=== PATIENT | male | born 1995 | race Caucasian/White ===

== ENCOUNTER 2019-10-18 10:11 | Emergency (ER) | payer SELFPAY ==
--- NOTE | 2019-10-18 11:10 | ER Document Report ---
HPI - HPI Time Seen by Provider: 10/18/19 10:39 Pain Level: 3 Context: Patient is a 24-year-old male who presents to the emergency department with a chief complaint of left arm pain from his distal elbow all the way down to his fingers. 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 Patient states that he does a lot of repetitive flexing motions with his fingers. Patient states that he is not able to extend his second, third, and fourth digits without helping his fingers. Denies any past medical history. Patient denies any injury. - ROS Systems Reviewed and Negative: Yes All other systems reviewed and negative - MUSCULOSKELETAL Musculoskeletal: REPORTS: Extremity pain - left elbow. DENIES: Swelling - DERM Skin Color: Normal Skin Problems: None Past Medical History - Social History Smoking Status: Current Some Day Smoker Chew tobacco use (# tins/day): No Frequency of alcohol use: None Drug Abuse: None Family History: Reviewed & Not Pertinent Patient has homicidal ideation: No Vertical Provider Document - CONSTITUTIONAL Agree With Documented VS: Yes Exam Limitations: No Limitations General Appearance: No Apparent Distress - INFECTION CONTROL TRAVEL OUTSIDE OF THE [place] IN LAST 30 DAYS: No - HEENT HEENT: Atraumatic, Normocephalic - NECK Neck: Normal Inspection - RESPIRATORY Respiratory: No Respiratory Distress - CARDIOVASCULAR Cardiovascular: Regular Rate, Regular Rhythm Pulses: Normal: Radial - MUSCULOSKELETAL/EXTREMETIES Musculoskeletal/Extremeties: Tender - Left posterior arm, No Edema. negative: FROM - Decreased extension movements, Eccymosis - NEURO Level of Consciousness: Awake, Alert, Appropriate - DERM Integumentary: Warm, Dry, No Rash Course - Re-evaluation Re-evalutation: 10/18/19 11:53 Hand and elbow x-ray are unremarkable. No arthritis noted. Patient was placed in a splint. He will follow-up with orthopedics if he continues to have pain. We will start him on a course of prednisone. He is in agreement with this plan. Educated patient to stretch his hand. He is in agreement with this plan. Follow-up precautions were given. Verbal discharge instructions were given to the patient. They verbalized understanding. They are stable for discharge. - Vital Signs Vital signs: Temp Pulse Resp BP Pulse Ox 98.5 F 97 16 122/75 98 10/18/19 10:39 10/18/19 10:17 10/18/19 10:17 10/18/19 10:17 10/18/19 10:17 Discharge - Discharge Clinical Impression: Left arm pain, Left hand pain Trigger finger Qualifiers: Trigger finger location: unspecified finger Laterality: left Qualified Code(s): M65.30 - Trigger finger, unspecified finger Condition: Stable Disposition: HOME, SELF-CARE Additional Instructions: You were seen today in the emergency department for left arm pain and finger pain. You have trigger finger. Please make sure you rest and wear the splint. Make sure you do not do repetitive motions with your fingers, as this will make trigger finger worse. Follow-up with orthopedics if you continue to have problems. You are also being placed on steroids to help with inflammation. Take ibuprofen 600 mg every 6 hours as needed for your pain. Prescriptions: Prednisone [Deltasone 20 mg Tablet] 3 tab PO DAILY 5 Days #15 tablet Forms: Return to Work Referrals: [facility] [Provider Group] - Follow up as needed [facility] [Provider Group] - Follow up as needed ROE CABA JR, DO [ACTIVE PROVISIONAL STAFF] - Follow up in 1 week
--- NOTE | 2019-10-18 11:23 | RADIOLOGY REPORT (SQ) ---
EXAM DESCRIPTION: HAND LEFT 3 VIEWS IMAGES COMPLETED DATE/TIME: 10/18/2019 11:06 am REASON FOR STUDY: hand pain COMPARISON: None. EXAM PARAMETERS: NUMBER OF VIEWS: Three views. TECHNIQUE: AP, lateral and oblique radiographic images acquired of the left hand. LIMITATIONS: None. FINDINGS: MINERALIZATION: Normal. BONES: No acute fracture or dislocation. No worrisome bone lesions. No significant osteophytes. JOINTS: No erosions. No bassam-articular osteopenia. No chondrocalcinosis. SOFT TISSUES: No swelling. No calcifications. OTHER: No other significant finding. IMPRESSION: NEGATIVE STUDY OF THE LEFT HAND. NO EXPLANATION FOR PAIN. TECHNICAL DOCUMENTATION: JOB ID: [id number] 2010 [employer]- All Rights Reserved Reading location - IP/workstation name: [email or web address]
--- NOTE | 2019-10-18 11:23 | RADIOLOGY REPORT (SQ) ---
EXAM DESCRIPTION: ELBOW LEFT OVER 2 VIEWS IMAGES COMPLETED DATE/TIME: 10/18/2019 11:06 am REASON FOR STUDY: elbow pain COMPARISON: None. NUMBER OF VIEWS: Four view. TECHNIQUE: AP, lateral, and both oblique radiographic images acquired of the left elbow. LIMITATIONS: None. FINDINGS: MINERALIZATION: Normal. BONES: No acute fracture or dislocation. No worrisome bone lesions. No significant osteophytes. JOINT: No effusions. SOFT TISSUES: No soft tissue swelling. No foreign body. OTHER: No other significant finding. IMPRESSION: NEGATIVE STUDY OF THE LEFT ELBOW. NO EXPLANATION FOR PAIN. TECHNICAL DOCUMENTATION: JOB ID: [id number] 2010 [email or web address]- All Rights Reserved. Reading location - IP/workstation name: [email or web address]
[2019-10-18 12:23] VITALS: BP 104/60
== END 2019-10-18 12:21 | disposition home or self-care (01) ==
LOC: ER 10:11
DX: M65.30 Trigger finger, unspecified finger (principal); M79.642 Pain in left hand; M25.522 Pain in left elbow; F17.200 Nicotine dependence, unspecified, uncomplicated
CPT/HCPCS: 99283

== ENCOUNTER 2019-10-26 09:32 | Emergency (ER) | payer SELFPAY ==
--- NOTE | 2019-10-26 13:29 | ER Document Report ---
HPI - HPI Time Seen by Provider: 10/26/19 12:34 Pain Level: 1 Context: Patient is a 24-year-old male who presents the emergency department with a chief complaint of left wrist/hand pain. Patient was seen here in the emergency department with continued symptoms. Patient states that he is able to extend his fingers a little more, but hit his wrist has a hard time extending. Patient has not followed up with orthopedics. - ROS Systems Reviewed and Negative: Yes All other systems reviewed and negative - MUSCULOSKELETAL Musculoskeletal: REPORTS: Extremity pain - Lt arm - DERM Skin Color: Normal Skin Problems: None Past Medical History - General Information source: Patient - Social History Smoking Status: Smoker,Current Status Unk Frequency of alcohol use: Social Drug Abuse: None Family History: Reviewed & Not Pertinent Vertical Provider Document - CONSTITUTIONAL Agree With Documented VS: Yes Exam Limitations: No Limitations General Appearance: No Apparent Distress - INFECTION CONTROL TRAVEL OUTSIDE OF THE [place] IN LAST 30 DAYS: No - HEENT HEENT: Atraumatic, Normocephalic, PERRLA - NECK Neck: Normal Inspection - RESPIRATORY Respiratory: Breath Sounds Normal, No Respiratory Distress - CARDIOVASCULAR Cardiovascular: Regular Rate, Regular Rhythm Pulses: Normal: Radial - MUSCULOSKELETAL/EXTREMETIES Musculoskeletal/Extremeties: negative: FROM - Wrist to elbow joint, right wrist - NEURO Level of Consciousness: Awake, Alert, Appropriate Motor/Sensory: No Sensory Deficit - DERM Integumentary: Warm, Dry, No Rash Course - Re-evaluation Re-evalutation: 10/26/19 13:40 Dr. Wills evaluated the patient. He states the patient has ulnar drop. I noticed that the patient has had some improvement in his range of motion. Dr. wills is recommending the patient be placed on another round of steroids, but will give Decadron this time. We will also check Accu-Chek. 10/27/19 07:58 Blood sugar is 88. Dr. Wills is recommending a cock-up splint for the patient to help with this ulnar drop. Capillary refill less than 3 seconds. Radial pulse 2+. No vascular compromise noted. Follow-up precautions were given. Verbal discharge instructions were given to the patient. They verbalized understanding. They are stable for discharge. - Vital Signs Vital signs: Temp Pulse Resp BP Pulse Ox 98.7 F 82 16 122/65 98 10/26/19 10:01 10/26/19 10:01 10/26/19 10:01 10/26/19 10:01 10/26/19 10:01 Procedures - Immobilization Left Wrist Pre-Proc Neuro Vasc Exam: Normal Immobilizer type: Cock-up Performed by: PCT Post-Proc Neuro Vasc Exam: Normal, Unchanged from pre-exam Alignment checked and good: Yes Discharge - Discharge Clinical Impression: Left wrist pain Finger pain Qualifiers: Laterality: left Qualified Code(s): M79.645 - Pain in left finger(s) Condition: Stable Disposition: HOME, SELF-CARE Additional Instructions: You were seen today in the emergency department for contorting left arm pain. Wear the splint at night. You must follow-up with orthopedics in regards to this visit. Take the steroids as prescribed. Prescriptions: Dexamethasone [Decadron 4 Mg Tablet] 4 mg PO DAILY 5 Days #5 tablet Forms: Return to Work Referrals: AURORA HERNANDES MD [ACTIVE PROVISIONAL STAFF] - Follow up in 3-5 days ROE CABA JR, DO [ACTIVE PROVISIONAL STAFF] - Follow up in 3-5 days RANCHO FORMAN DO [ACTIVE STAFF] - Follow up in 3-5 days
[2019-10-26 14:09] VITALS: BP 113/82
== END 2019-10-26 14:09 | disposition home or self-care (01) ==
LOC: ER 09:32
DX: M79.642 Pain in left hand (principal); M79.645 Pain in left finger(s); F17.200 Nicotine dependence, unspecified, uncomplicated
CPT/HCPCS: 82962; 99283

== ENCOUNTER 2019-11-06 11:40 | Emergency (ER) | payer SELFPAY ==
[2019-11-06] MEDS ORDERED: IBUPROFEN 800 MG TABLET PO ONE (12:26)
--- NOTE | 2019-11-06 12:31 | ER Document Report ---
ED Medical Screen (RME) - General Chief Complaint: Arm Pain Stated Complaint: ARM PAIN Time Seen by Provider: 11/06/19 12:19 TRAVEL OUTSIDE OF THE [place] IN LAST 30 DAYS: No - HPI Notes: 11/06/19 12:27 24-year-old male presents emergency room for complaints of pain to his left axilla, states he is noticed a "bump" that started proximally 3 days ago. States pain is 5 out of 10, reports pain with movement. Denies history of MRSA. Patient has been able to see his primary care provider for this issue. no otc meds tried. Patient denies any drainage. Patient is in a left wrist cock up for pre-existing left wrist pain. denies any chest pain, shortness of breath, fevers or chills. I have greeted and performed a rapid initial assessment of this patient. A comprehensive ED assessment and evaluation of the patient, analysis of test results and completion of the medical decision making process will be conducted by additional ED providers. PHYSICAL EXAMINATION: NECK: Normal range of motion CV: s1, s2 regular LUNGS: No respiratory distress Musculoskeletal: Normal range of motion NEUROLOGICAL: Normal speech, normal gait. SKIN: Warm, Dry, normal turgor, no rashes or lesions noted. Inferior aspect of left axilla with an abscess approximately 2 cm x 2 cm with erythema, induration, pain to touch. No surrounding lymphadenopathy 11/06/19 12:30 - Related Data Allergies/Adverse Reactions: No Known Allergies Allergy (Verified 11/06/19 12:18) Physical Exam - Vital signs Vitals: Temp Pulse Resp BP Pulse Ox 99.4 F 89 14 118/80 100 11/06/19 11:52 11/06/19 11:52 11/06/19 11:52 11/06/19 11:52 11/06/19 11:52 Course - Vital Signs Vital signs: Temp Pulse Resp BP Pulse Ox 99.4 F 89 14 118/80 100 11/06/19 11:52 11/06/19 11:52 11/06/19 11:52 11/06/19 11:52 11/06/19 11:52
[2019-11-06] MEDS ORDERED: LIDOCAINE 1%/EPINEPHRINE INJ 20 ML VIAL INJ ONE (14:28)
--- NOTE | 2019-11-06 15:06 | ER Document Report ---
ED General - General Chief Complaint: Abscess Stated Complaint: ARM PAIN Time Seen by Provider: 11/06/19 12:19 Notes: 24-year-old male with past medical history of abscesses presenting today with an abscess under his left armpit. States he developed a few days ago. States he did shave under his armpit a few days ago. Is warm, tender to palpation. He has not been able to drain the abscess. States he has had no fever, chills or additional symptoms at this time. TRAVEL OUTSIDE OF THE [place] IN LAST 30 DAYS: No - Related Data Allergies/Adverse Reactions: No Known Allergies Allergy (Verified 11/06/19 12:18) Past Medical History - Social History Smoking Status: Former Smoker Chew tobacco use (# tins/day): No Frequency of alcohol use: Social Family History: Reviewed & Not Pertinent Patient has homicidal ideation: No Review of Systems - Review of Systems Constitutional: No symptoms reported EENT: No symptoms reported Cardiovascular: No symptoms reported Respiratory: No symptoms reported Gastrointestinal: No symptoms reported Genitourinary: No symptoms reported Male Genitourinary: No symptoms reported Skin: See HPI Neurological/Psychological: No symptoms reported Physical Exam - Vital signs Vitals: Temp Pulse Resp BP Pulse Ox 99.4 F 89 14 118/80 100 11/06/19 11:52 11/06/19 11:52 11/06/19 11:52 11/06/19 11:52 11/06/19 11:52 Interpretation: No: Bradycardic, Tachycardic, Hypoxic, Tachypneic, Febrile - Notes Notes: Adult General: GENERAL: Alert, interacts well. No acute distress HEAD: Normocephalic, atraumatic EYES: Extraocular movements intact. ENT: Airway patent. Nares patent. NECK: Full range of motion. Supple. Trachea midline. LUNGS: No respiratory distress. Nontender chest wall. HEART: Regular rate and rhythm. ABDOMEN: Soft, nontender. GENITOURINARY: Deferred EXTREMITIES: Moves all 4 extremities spontaneously. BACK: Moves all extremities with full range of motion. NEUROLOGICAL: Alert and oriented x3. Normal speech. Strength 5/ 5 in all ext remities. PSYCH: Normal affect, normal mood. SKIN: Warm, dry, normal turgor. 2 cm fluctulent tender mass in left arm pit. no associated cellulitis. Course - Re-evaluation Re-evalutation: Abscess was incised and drained. Produced purulent discharge. Was then packed with iodoform gauze. Patient tolerated procedure. Prescribed antibiotics to take. I discussed wound care with the patient and the need to follow-up in 24 hours for wound check the emergency department or primary care or urgent care. I also discussed return precautions with the patient to include fever, chills, tenderness, worsening symptoms or development of new symptoms. Patient acknowledges and verbalizes understanding of instructions and plan. All ques tions answered - Vital Signs Vital signs: Temp Pulse Resp BP Pulse Ox 97.9 F 67 16 128/56 H 98 11/06/19 16:47 11/06/19 16:47 11/06/19 16:47 11/06/19 16:47 11/06/19 16:47 - Laboratory Result Diagrams: 11/06/19 15:00 11/06/19 15:00 Procedures - Incision and Drainage Left Type: Simple Anesthetic type: 1% Lidocaine w/epi I&D procedure: Betadine prep applied Incision Method: Incision made by scalpel Amount/type of drainage: Purulent bloody discharge drained. Notes: The area was prepared and and draped in a sterile manner. The site was anesthetized with 1%lidocaine with epinephrine. A linear incision along the local skin lines was made and purulent discharge expressed. The abscess was explored thoroughly and sequstered pockets were opened. Bleeding was minimal. Iodoform Packing was applied. The Patient tolerated the procedure well without complications. Standarad post-procedure care was explained and return precautions were given. Discharge - Discharge Clinical Impression: Abscess Condition: Stable Disposition: HOME, SELF-CARE Instructions: Abscess ([facility]), Clindamycin ([facility]), Post Incision and Drainage Additional Instructions: Please keep the area clean and dry. Please have a wound check in 24 to 48 hours this can be done in the emergency department, primary care or urgent care.. Please follow-up if you have worsening symptoms or development of new symptoms. Especially if you have fever, chills, extra discharge or tenderness to the area. You may take Tylenol and ibuprofen for pain. Please take the antibiotics as prescribed. Prescriptions: Clindamycin HCl 150 mg PO TID #63 capsule
[2019-11-06 15:49] LABS: ABSOLUTE EOSINOPHILS # (AUTO) 0.1 10^3/uL (0.0-0.6); ABSOLUTE LYMPHOCYTES (AUTO) 1.6 10^3/uL (0.5-4.7); ABSOLUTE MONOCYTES (AUTO) 0.8 10^3/uL (0.1-1.4); ABSOLUTE NEUT (AUTO) 7.1 10^3/uL (1.7-8.2); BASOPHILS % (AUTO) 0.4 % (0-2); EOSINOPHILS % (AUTO) 1.5 % (0-6); HEMOGLOBIN 14.5 g/dL (13.5-17.0); LYMPHOCYTES % (AUTO) 16.6 % (13-45); MEAN CORPUSCULAR HEMOGLOBIN 30.5 pg (27.0-33.4); MEAN CORPUSCULAR HGB CONC 34.4 g/dL (32.0-36.0); MEAN CORPUSCULAR VOLUME 89 fl (80-97); MONOCYTES % (AUTO) 8.2 % (3-13); PLATELET COUNT 181 10^3/uL (150-450); RED BLOOD COUNT 4.74 10^6/uL (4.35-5.55); RED CELL DISTRIBUTION WIDTH 13.1 % (11.5-14.0); SEGMENTED NEUTROPHILS % (AUTO) 73.3 % (42-78); TOTAL CELLS COUNTED % (AUTO) 100 %; WHITE BLOOD COUNT 9.7 10^3/uL (4.0-10.5)
[2019-11-06 16:16] LABS: ALBUMIN 4.6 g/dL (3.5-5.0); ALKALINE PHOSPHATASE 79 U/L (38-126); ANION GAP 9 (5-19); ASPARTATE AMINO TRANSFERASE 18 U/L (17-59); BILIRUBIN,TOTAL 0.9 mg/dL (0.2-1.3); BLOOD UREA NITROGEN 9 mg/dL (7-20); CALCIUM 9.5 mg/dL (8.4-10.2); CARBON DIOXIDE 28 mmol/L (22-30); CHLORIDE 100 mmol/L (98-107); GLUCOSE 107 mg/dL (75-110); POTASSIUM 4.5 mmol/L (3.6-5.0); TOTAL PROTEIN 7.5 g/dL (6.3-8.2)
[2019-11-06 16:48] VITALS: BP 128/56
== END 2019-11-06 16:48 | disposition home or self-care (01) ==
LOC: ER 11:40
DX: L02.412 Cutaneous abscess of left axilla (principal); Z87.891 Personal history of nicotine dependence
CPT/HCPCS: 99283; 36415; 87040; 87070; 87205; 85025; 87077; 80053; 10060; J3490; 87186

== ENCOUNTER 2019-11-08 11:09 | Emergency (ER) | payer SELFPAY ==
[2019-11-08 11:14] VITALS: BP 145/67
--- NOTE | 2019-11-08 11:25 | ER Document Report ---
ED General - General Chief Complaint: Wrist Pain Stated Complaint: WRIST PAIN Time Seen by Provider: 11/08/19 11:16 Notes: Patient presents with 2 complaints. 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 The pain began this morning on the radius of his wrist. No further injuries. Pain is mild/moderate. No skin changes or infection. He also is here for a follow-up on the abscess in his left axilla which was incised and drained here a few days ago. Took antibiotics for 3 days says that the redness is improving but he still has pain and drainage. No fever. TRAVEL OUTSIDE OF THE [place] IN LAST 30 DAYS: No - Related Data Allergies/Adverse Reactions: No Known Allergies Allergy (Verified 11/06/19 12:18) Past Medical History - General Information source: Patient - Social History Smoking Status: Current Every Day Smoker Frequency of alcohol use: Occasional Family History: Reviewed & Not Pertinent Review of Systems - Review of Systems Notes: REVIEW OF SYSTEMS GEN: Denies fever, chills, weight loss ENT: Denies sore throat, nasal discharge, ear pain EYES: Denies blurry vision, eye pain, discharge CV: Denies chest pain, palpitations, edema RESP: Denies cough, shortness of breath, wheezing GI: Denies abdominal pain, nausea, vomiting, diarrhea MSK: Wrist pain left armpit pain SKIN: Denies rash, skin lesions LYMPH: Denies swollen glands/lymph nodes NEURO: Denies headache, focal weakness or numbness, dizziness PSYCH: Denies depression, suicidal or homicidal ideation PHYSICAL EXAMINATION General: No acute distress, well-nourished Head: Atraumatic, normocephalic ENT: Mouth normal, oropharynx moist, no exudates or tonsillar enlargement Eyes: Conjunctiva normal, pupils equal, lids normal Neck: No JVD, supple, no guarding CVS: Normal rate, regular rhythm, no murmurs Resp: No resp distress, equal and normal breath sounds bilaterally GI: Nondistended, soft, no tenderness to palpation, no rebound or guarding Ext: No deformities, no edema, normal range of motion in upper and lower ext. Small abscess left axilla with some purulent drainage, minimal fluctuance remaining and no surrounding redness Back: No CVA or midline TTP Skin: No rash, warm Lymphatic: No lymphadeopathy noted Neuro: As of the left wrist extensors Physical Exam - Vital signs Vitals: Temp Pulse Resp BP Pulse Ox 98.6 F 89 17 145/67 H 100 11/08/19 11:13 11/08/19 11:13 11/08/19 11:13 11/08/19 11:13 11/08/19 11:13 Course - Re-evaluation Re-evalutation: 11/08/19 11:25 Radial nerve palsychronic stable with mild pain although there is nothing on exam that would suggest the need for imaging or testingneeds to follow-up and stressed importance of follow-up in terms of his function and good outcomes Abscess is draining well repack and dressed. Already on antibiotics. Follow-up primary care. I have discussed with the patient there likely diagnosis, aftercare plan, follow-up plans and my usual and customary return precautions. They verbalized understanding of this. - Vital Signs Vital signs: Temp Pulse Resp BP Pulse Ox 98.6 F 89 17 145/67 H 100 11/08/19 11:13 11/08/19 11:13 11/08/19 11:13 11/08/19 11:13 11/08/19 11:13 Discharge - Discharge Clinical Impression: Cutaneous abscess of left axilla, Left wrist drop Condition: Good Disposition: HOME, SELF-CARE Instructions: Abscess ([facility]) Additional Instructions: As we discussed is very important that you follow-up with primary care or physical therapy in order to regain full function of your left wrist. Please continue antibiotics for the abscess take ibuprofen Tylenol for pain
== END 2019-11-08 11:43 | disposition home or self-care (01) ==
LOC: ER 11:09
DX: L02.412 Cutaneous abscess of left axilla (principal); Z48.01 Encounter for change or removal of surgical wound dressing; G56.32 Lesion of radial nerve, left upper limb; M21.332 Wrist drop, left wrist; F17.200 Nicotine dependence, unspecified, uncomplicated
CPT/HCPCS: 99282

== ENCOUNTER 2020-05-05 10:52 | Emergency (ER) | payer OTHER ==
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
[2020-05-05 14:43] VITALS: BP 128/76
== END 2020-05-05 14:41 | disposition home or self-care (01) ==
LOC: ER 10:52
DX: S33.5XXA Sprain of ligaments of lumbar spine, initial encounter (principal); M54.5 Low back pain; M25.561 Pain in right knee; M25.562 Pain in left knee; M79.632 Pain in left forearm; M79.631 Pain in right forearm; V89.2XXA Person injured in unspecified motor-vehicle accident, traffic, initial encounter; F17.200 Nicotine dependence, unspecified, uncomplicated
CPT/HCPCS: 72110; 99284